=== PATIENT | male | born 1990 | race Hispanic/Latino ===

== ENCOUNTER 2022-05-07 09:24 | Inpatient (IN) | payer BC, OTHER ==
[2022-05-07] MEDS ORDERED: Ampicillin/Sulbactam 3 GM in Sodium Chloride 0.9% 100 ML IVPB SCH (10:00)
[2022-05-07] MEDS ORDERED: Ketorolac Tromethamine 30 MG/ML VIAL ONE (10:10)
[2022-05-07] MEDS ORDERED: Ondansetron PF 4 MG/2 ML Vial ONE (10:10)
[2022-05-07 10:12] LABS: #Eosinphils 0.1 10x3/uL (0.0-0.5); #Neutrophils 11.4 10x3/uL (1.5-8.4); %Basophils 0.3 % (0.0-2.0); %Eosinophils 0.4 % (0.0-6.0); %Lymphocytes 10.6 % (18.0-47.0); %Monocytes 6.9 % (0.0-10.0); %Neutrophils 81.5 % (40.0-75.0); Hemoglobin 15.9 g/dL (13.5-17.5); Mean Corpuscular HGB CONC 35.9 g/dL (32.0-36.0); Mean Corpuscular Hemoglobin 30.6 pg (27.0-33.0); Mean Corpuscular Volume 85.2 fl (81.2-95.1); Mean Platelet Volume 9.8 fl (7.4-10.4); Platelet Count 233 10x3/uL (150-450); RBC Distribution Width 12.2 % (11.5-14.5)
[2022-05-07 10:23] LABS: ALT (SGPT) 50 U/L (8-55); AST (SGOT) 21 U/L (5-34); Albumin 4.3 g/dL (3.5-5.0); Alkaline Phosphatase 63 U/L (40-110); Anion Gap 14 mmol/L (10-20); BUN (Urea Nitrogen) 13 mg/dL (8.9-20.6); Bilirubin, Total 1.9 mg/dL (0.2-1.2); Calc. Creatinine Clearance 0 mL/min (70-130); Calcium 9.8 mg/dL (7.8-10.44); Carbon Dioxide 24 mmol/L (22-29); Chloride 103 mmol/L (98-107); Estimated GFR 121; Globulin 3.2 g/dL (2.4-3.5); Glucose 90 mg/dL (70-105); Potassium 3.9 mmol/L (3.5-5.1); Protein, Total 7.5 g/dL (6.0-8.3); Sodium 137 mmol/L (136-145)
[2022-05-07] MEDS ORDERED: Clindamycin/D5W 900 MG in Premix Bag 1 BAG IVPB SCH (12:00)
[2022-05-07 12:42] VITALS: BMI 21.7
[2022-05-07] MEDS ORDERED: Ondansetron PF 4 MG/2 ML Vial IVP PRN (13:37)
[2022-05-07] MEDS ORDERED: Clindamycin (PEDI) 600 MG in Syringe 0 ML IVPB SCH (13:45)
[2022-05-07] MEDS: Ampicillin/Sulbactam 3 GM in Sodium Chloride 0.9% 100 ML IVPB SCH ×2 (15:19→23:00)
[2022-05-07] MEDS ORDERED: Iopamidol 300 61% 100 ML VIAL FS ONE (15:54)
[2022-05-07] MEDS ORDERED: Morphine 4 MG/ML VIAL ONE (17:56)
[2022-05-07] MEDS: Morphine 2 MG/ML VIAL SLOW IVP PRN (21:58)
[2022-05-07] MEDS: Clindamycin/D5W 600 MG in Premix Bag 1 BAG IVPB SCH (22:00)
[2022-05-08] MEDS: Morphine 2 MG/ML VIAL SLOW IVP PRN ×5 (01:14→20:49)
[2022-05-08] MEDS ORDERED: HYDROmorphone 0.5 MG/0.5 ML SYRINGE SLOW IVP SCH (04:00)
[2022-05-08 04:16] LABS: #Eosinphils 0.1 10x3/uL (0.0-0.5); #Monocytes 0.7 10x3/uL (0.0-1.1); #Neutrophils 7.5 10x3/uL (1.5-8.4); %Basophils 0.3 % (0.0-2.0); %Eosinophils 1.3 % (0.0-6.0); %Lymphocytes 15.3 % (18.0-47.0); %Monocytes 7.2 % (0.0-10.0); %Neutrophils 75.7 % (40.0-75.0); Hemoglobin 14.1 g/dL (13.5-17.5); Mean Corpuscular HGB CONC 34.5 g/dL (32.0-36.0); Mean Corpuscular Hemoglobin 29.8 pg (27.0-33.0); Mean Corpuscular Volume 86.5 fl (81.2-95.1); Mean Platelet Volume 9.5 fl (7.4-10.4); Platelet Count 198 10x3/uL (150-450); RBC Distribution Width 12.3 % (11.5-14.5); Red Blood Cell (RBC) Count 4.73 10x6/uL (4.32-5.72); White Blood Cell (WBC) Count 9.9 10x3/uL (3.5-10.5)
[2022-05-08] MEDS: Ampicillin/Sulbactam 3 GM in Sodium Chloride 0.9% 100 ML IVPB SCH ×4 (04:24→20:52)
[2022-05-08 04:29] LABS: Anion Gap 15 mmol/L (10-20); BUN (Urea Nitrogen) 16 mg/dL (8.9-20.6); Calc. Creatinine Clearance 134 mL/min (70-130); Carbon Dioxide 25 mmol/L (22-29); Chloride 101 mmol/L (98-107); Estimated GFR 120; Glucose 69 mg/dL (70-105); Potassium 3.7 mmol/L (3.5-5.1); Sodium 137 mmol/L (136-145)
[2022-05-08] MEDS: Clindamycin/D5W 600 MG in Premix Bag 1 BAG IVPB SCH ×3 (06:10→20:52)
[2022-05-08] MEDS ORDERED: Sodium Chloride 0.9% 100 ML ONE (09:43)
[2022-05-08] MEDS ORDERED: Fluticasone Propionate Nasal Spray 16 gm Bottle NASAL PRN (19:17)
[2022-05-08] MEDS: hydrOXYzine Pamoate 25 mg Capsule PO SCH (20:53)
[2022-05-08] MEDS ORDERED: Valproate Sodium 250 mg/5 ml UD Cup PO SCH (21:00)
[2022-05-09] MEDS: Ampicillin/Sulbactam 3 GM in Sodium Chloride 0.9% 100 ML IVPB SCH ×3 (04:53→16:19)
[2022-05-09] MEDS: Clindamycin/D5W 600 MG in Premix Bag 1 BAG IVPB SCH ×2 (04:53→14:04)
[2022-05-09 05:07] LABS: #Eosinphils 0.3 10x3/uL (0.0-0.5); #Monocytes 0.7 10x3/uL (0.0-1.1); #Neutrophils 5.7 10x3/uL (1.5-8.4); %Basophils 0.4 % (0.0-2.0); %Eosinophils 3.6 % (0.0-6.0); %Lymphocytes 16.1 % (18.0-47.0); %Monocytes 8.8 % (0.0-10.0); %Neutrophils 70.8 % (40.0-75.0); Anion Gap 13 mmol/L (10-20); BUN (Urea Nitrogen) 8 mg/dL (8.9-20.6); Calc. Creatinine Clearance 139 mL/min (70-130); Calcium 9.5 mg/dL (7.8-10.44); Carbon Dioxide 28 mmol/L (22-29); Chloride 101 mmol/L (98-107); Estimated GFR 122; Glucose 90 mg/dL (70-105); Mean Corpuscular HGB CONC 35.1 g/dL (32.0-36.0); Mean Corpuscular Hemoglobin 29.8 pg (27.0-33.0); Mean Corpuscular Volume 84.7 fl (81.2-95.1); Mean Platelet Volume 9.5 fl (7.4-10.4); Platelet Count 238 10x3/uL (150-450); RBC Distribution Width 12.2 % (11.5-14.5); Red Blood Cell (RBC) Count 5.04 10x6/uL (4.32-5.72); Sodium 138 mmol/L (136-145)
[2022-05-09] MEDS ORDERED: Ibuprofen 400 MG TAB PO PRN (07:40)
[2022-05-09] MEDS ORDERED: Dexamethasone 20 MG/5 ML VIAL SLOW IVP SCH (08:00)
[2022-05-09] MEDS: HYDROcodone/Acetaminophen 7.5/325 mg Tablet PO PRN ×2 (08:57→14:14)
[2022-05-09] MEDS ORDERED: Aripiprazole 10 MG TAB PO SCH (09:00)
[2022-05-09] MEDS: hydrOXYzine Pamoate 25 mg Capsule PO SCH (09:47)
[2022-05-09 17:02] VITALS: BP 111/61; TEMP 98
== END 2022-05-09 19:52 | disposition home or self-care (01) | DRG 145 ==
LOC: CSHERS 09:24 → CSHTELE 12:10
PROVIDERS: ADMIT Internal Medicine; ATTEND Internal Medicine
PROC: 0C9P0ZZ Drainage of Tonsils, Open Approach (ICD-10-PCS; principal; 2022-05-07)
DX: J36 Peritonsillar abscess (principal); F41.9 Anxiety disorder, unspecified; F32.A Depression, unspecified; F17.210 Nicotine dependence, cigarettes, uncomplicated; Z91.018 Allergy to other foods; Z79.899 Other long term (current) drug therapy; Z98.890 Other specified postprocedural states; Z87.442 Personal history of urinary calculi; Z71.6 Tobacco abuse counseling; F12.10 Cannabis abuse, uncomplicated
CPT/HCPCS: 36415; 70492; 80048; 80053; 85025; 87040; 96365; 96366; 96367; 96375; J0295; J1100; J1170; J1885; J2270; J2272; J2405; J3490; Q0177; Q9967

== ENCOUNTER 2024-01-13 17:59 | Emergency (ER) | payer BC ==
[2024-01-13] MEDS ORDERED: HYDROcodone/Acetaminophen 5/325 mg Tablet ONE (18:33)
== END 2024-01-13 19:22 | disposition home or self-care (01) ==
LOC: CSHERS 17:59
DX: S60.221A Contusion of right hand, initial encounter (principal); F17.210 Nicotine dependence, cigarettes, uncomplicated; W22.8XXA Striking against or struck by other objects, initial encounter
CPT/HCPCS: 99283